=== PATIENT | female | born 1945 | race Caucasian/White ===

== ENCOUNTER → 2020-10-01 | Outpatient (CLI) | payer MEDICARE, BC | END | disposition home or self-care (01) | LOC: CFH 11:11 | PROVIDERS: ATTEND Nurse Practitioner | DX: E89.0 Postprocedural hypothyroidism (principal); E04.9 Nontoxic goiter, unspecified; E04.1 Nontoxic single thyroid nodule; E06.3 Autoimmune thyroiditis | CPT/HCPCS: 76536 ==